=== PATIENT | female | born 1995 | race Two or more races ===

== ENCOUNTER 2016-07-11 18:34 | Emergency (ER) | payer SELFPAY ==
[~2016-07-11] VITALS: Ht 162.6 cm; Wt 72.0 kg
[2016-07-11] MEDS ORDERED: CYCLOBENZAPRINE 10MG TABLET PO ONE (20:15)
[2016-07-11] MEDS ORDERED: KETOROLAC 30MG/ML VIAL IM ONE (20:15)
[2016-07-11 21:15] VITALS: BP 122/66
== END 2016-07-11 21:39 | disposition home or self-care (01) ==
LOC: ER 18:49
DX: S00.93XA Contusion of unspecified part of head, initial encounter (principal); S30.0XXA Contusion of lower back and pelvis, initial encounter; V49.59XA Passenger injured in collision with other motor vehicles in traffic accident, initial encounter; Y93.89 Activity, other specified; Y92.410 Unspecified street and highway as the place of occurrence of the external cause; Y99.8 Other external cause status
CPT/HCPCS: 81025; 96372; 99283; J1885

== ENCOUNTER 2020-10-21 14:54 | Emergency (ER) | payer SELFPAY ==
[~2020-10-21] VITALS: Ht 162.6 cm; Wt 83.0 kg
[2020-10-21] MEDS ORDERED: KETOROLAC 60MG/2ML VIAL IM ONE (17:45)
[2020-10-21] MEDS ORDERED: METHOCARBAMOL 500MG TABLET PO ONE (17:45)
[2020-10-21] MEDS ORDERED: METHOCARBAMOL 500MG TABLET PO NR (18:00)
[2020-10-21] MEDS ORDERED: NAPR-681 MT (18:08)
[2020-10-21] MEDS ORDERED: METH500T6 MT (18:08)
[2020-10-21 18:22] VITALS: BP 128/70
== END 2020-10-21 18:22 | disposition home or self-care (01) ==
LOC: ER 14:54
DX: S16.1XXA Strain of muscle, fascia and tendon at neck level, initial encounter (principal); V49.9XXA Car occupant (driver) (passenger) injured in unspecified traffic accident, initial encounter; Y93.89 Activity, other specified; Y92.89 Other specified places as the place of occurrence of the external cause; Y99.8 Other external cause status
CPT/HCPCS: 81025; 96372; 99283; J1885